=== PATIENT | male | born 1950 | race Caucasian/White ===

== ENCOUNTER 2018-07-16 13:28 | Outpatient (CLI) | payer OTHER ==
[~2018-07-16 13:28] MED LIST: INDO50CA5
== END 2018-07-16 23:59 | disposition home or self-care (01) ==
LOC: WOUND 13:28
PROVIDERS: ATTEND Family Medicine
DX: L97.811 Non-pressure chronic ulcer of other part of right lower leg limited to breakdown of skin (principal); I87.2 Venous insufficiency (chronic) (peripheral); L03.115 Cellulitis of right lower limb; G89.29 Other chronic pain; G47.33 Obstructive sleep apnea (adult) (pediatric)
CPT/HCPCS: 97597; 97598; 99215

== ENCOUNTER → 2018-07-23 | Outpatient (CLI) | payer OTHER | END | disposition home or self-care (01) | LOC: WOUND 08:17 | PROVIDERS: ATTEND Family Medicine | DX: L97.811 Non-pressure chronic ulcer of other part of right lower leg limited to breakdown of skin (principal); L03.115 Cellulitis of right lower limb; G89.29 Other chronic pain; I87.2 Venous insufficiency (chronic) (peripheral); G47.33 Obstructive sleep apnea (adult) (pediatric) | CPT/HCPCS: 97597; 97598 ==

== ENCOUNTER → 2018-07-30 | Outpatient (CLI) | payer OTHER | END | disposition home or self-care (01) | LOC: WOUND 08:50 | PROVIDERS: ATTEND Family Medicine | DX: L97.811 Non-pressure chronic ulcer of other part of right lower leg limited to breakdown of skin (principal); I87.2 Venous insufficiency (chronic) (peripheral); L03.115 Cellulitis of right lower limb; G89.29 Other chronic pain; G47.33 Obstructive sleep apnea (adult) (pediatric) | CPT/HCPCS: 99214 ==

== ENCOUNTER → 2018-08-13 | Outpatient (CLI) | payer OTHER | END | disposition home or self-care (01) | LOC: WOUND 09:11 | PROVIDERS: ATTEND Family Medicine | DX: L97.811 Non-pressure chronic ulcer of other part of right lower leg limited to breakdown of skin (principal); L03.115 Cellulitis of right lower limb; G89.29 Other chronic pain; I87.2 Venous insufficiency (chronic) (peripheral); G47.33 Obstructive sleep apnea (adult) (pediatric) | CPT/HCPCS: 97597 ==

== ENCOUNTER → 2018-08-20 | Outpatient (CLI) | payer OTHER | END | disposition home or self-care (01) | LOC: WOUND 09:16 | PROVIDERS: ATTEND Family Medicine | DX: L97.811 Non-pressure chronic ulcer of other part of right lower leg limited to breakdown of skin (principal); I87.2 Venous insufficiency (chronic) (peripheral); L03.115 Cellulitis of right lower limb; G89.29 Other chronic pain; G47.33 Obstructive sleep apnea (adult) (pediatric) | CPT/HCPCS: 97597 ==

== ENCOUNTER 2020-05-30 23:14 | Emergency (ER) | payer MEDICARE, OTHER ==
[~2020-05-30] VITALS: Ht 193 cm; Wt 128.1 kg
[~2020-05-30 23:14] MED LIST changes: +INDO50CA15; -INDO50CA5
[2020-05-30] MEDS ORDERED: LIDOCAINE-MPF 1%, 5ML ONE (23:50)
[2020-05-31] MEDS ORDERED: CLINDAMYCIN 300 MG CAPSULE PO ONE
[2020-05-31] MEDS ORDERED: LIDOCAINE-MPF 1%, 5ML INFIL ONE
[2020-05-31] MEDS ORDERED: DIPH,PERTUSS(ACELL),TET VAC/PF 0.5 ML IM-VACC ONE ×2 (00:20)
[2020-05-31] MEDS ORDERED: CLINDAMYCIN 300 MG CAPSULE ONE (00:20)
[2020-05-31 00:51] VITALS: BP 131/82
--- NOTE | 2020-05-31 00:52 | NUR ---
Pt to ER with c/o swollen infected toe. Pt wound drained by physician. Dressed by tech. pt medicated per order. Patient given discharge instructions and they have confirmed that they understand the instructions. Patient ambulatory with steady gait.
== END 2020-05-31 00:54 | disposition home or self-care (01) ==
LOC: ED 23:44
DX: L03.032 Cellulitis of left toe (principal); M79.89 Other specified soft tissue disorders; M79.672 Pain in left foot
CPT/HCPCS: 10060; 90471; 90715; 99283

== ENCOUNTER → 2020-10-05 | Outpatient (CLI) | payer MEDICARE | END | disposition home or self-care (01) | LOC: RAD 13:58 | PROVIDERS: ATTEND Family Medicine | DX: M48.54XA Collapsed vertebra, not elsewhere classified, thoracic region, initial encounter for fracture (principal); M47.816 Spondylosis without myelopathy or radiculopathy, lumbar region | CPT/HCPCS: 72072; 72110 ==